=== PATIENT | female | born 1985 | race Caucasian/White ===

== ENCOUNTER 2025-06-18 05:36 | Emergency (ER) | payer OTHER, SELFPAY ==
[2025-06-18 05:42] VITALS: BP 117/76; BMI 17.8
[2025-06-18 05:45] VITALS: BP 117/76
[2025-06-18 06:00] VITALS: BP 120/80
[2025-06-18 06:05] LABS: Hematocrit 43.3 % (37.0-47.0); Hemoglobin 14.7 g/dL (12.0-16.0); Mean Corp Hgb Conc. 33.9 g/dL (33.0-37.0); Mean Corpuscular Volume 95.2 fL (81.0-99.0); Nucleated Red Blood Cells % 0 %; Platelet Count 176 10^3/uL (130-400); Red Cell Dist. Width 11.8 % (11.5-14.5)
[2025-06-18 06:14] LABS: HCG, Serum Qualitative Screen Negative
[2025-06-18 06:18] LABS: ALT (SGPT) 19 U/L (0-35); AST (SGOT) 23 U/L (14-36); Albumin 4.8 g/dl (3.5-5.0); Alkaline Phosphatase 43 U/L (38-126); Blood Urea Nitrogen 17 mg/dl (7-17); Calcium 9.8 mg/dl (8.4-10.2); Carbon Dioxide 28 mmol/L (22-30); Chloride 106 mmol/L (98-107); Estimated Creatinine Clearance 88 ml/min; Glucose 90 mg/dl (70-99); Potassium 3.8 mmol/L (3.5-5.1); Sodium 141 mmol/L (135-145); Total Protein 7.9 g/dl (6.3-8.2); eGFR > 60.00
--- NOTE | 2025-06-18 06:28 | ED.GENMED ---
History of Present Illness
General
Chief Complaint: Heart Rate Problem
Time Seen by Provider: 06/18/25 05:59
History of Present Illness
History of Present Illness:
FOCUSED PAST MEDICAL HISTORY
- Mitral valve prolapse and mitral regurgitation based on echo 2012
REVIEW OF OLD RECORDS
- I reviewed last records in [facility] which indicate that the patient gave in May 2020 via
Note:
CHIEF COMPLAINT(S)
Palpitations with left arm numbness, experienced overnight.
HISTORY OF PRESENT ILLNESS
The patient is a 39-year-old female who presents with palpitations and left arm numbness that woke her from sleep around 4:00 to 4:30 AM. She describes the palpitations as a pounding sensation, similar to a racing heart. She has experienced waking
up with intense heartbeats and subsequent nausea in the past, but not to this extent. The palpitations triggered a sensation of funny feeling in the head and discomfort in the back.
She reports the numbness was confined to her left upper extremity, with no involvement of the leg. No neck pain or symptoms suggestive of cervical radiculopathy were noted. She denies experiencing chest pain, similar sensory changes in the right
arm, leg, or headache, but mentioned feeling a tighter sensation during blood work.
Vital signs were stable upon examination in the Emergency Department, and her cardiovascular rhythm was noted to be within normal limits at that time. Previous episodes of similar symptoms have resolved on their own.
PAST MEDICAL AND SURGICAL HISTORY
The patient mentioned having an echocardiogram in 2012 that revealed a mitral valve abnormality with moderate to severe regurgitation.
SOCIAL DETERMINANTS AFFECTING HEALTH
The patient reports experiencing recent stress over the past few weeks, which may be a contributing factor to her current symptoms.
PHYSICAL EXAM
General: Alert, no acute distress.
Skin: Warm, dry.
Head: Normocephalic, atraumatic.
Neck: Supple, trachea midline.
Eyes, ears, nose, mouth, and throat: Oral mucosa moist.
Cardiovascular: Normal peripheral perfusion, heart rate in the 60s. No edema. There is a click associated with S2 along with 3 out of 6 murmur. The patient has known mitral regurgitation.
Respiratory: Respirations are non-labored.
Gastrointestinal: Abdomen nondistended.
Back: Normal range of motion, Normal alignment.
Musculoskeletal: Normal range of motion, normal strength; questionable sensory changes in the left upper extremity.
Neurological: Alert and oriented to person, place, time, and situation, No focal neurological deficit observed.
Psychiatric: Cooperative, appropriate mood & affect.
PLAN
1. Await final blood test results in the emergency department.
2. Recommendation to follow-up with a pile driver operator due to the finding of mitral valve regurgitation and palpitations. Referral to a local cardiology group will be provided.
3. Consideration of stress as a contributing factor to symptoms was discussed.
4. Patient education provided regarding potential need for further cardiac evaluation, including a repeat echocardiogram if indicated.
DIFFERENTIAL DIAGNOSIS
The Differential Diagnosis includes, in no particular order and is not limited to:
1. Mitral valve prolapse with regurgitation
2. Anxiety-induced palpitations
3. Atrial fibrillation or other cardiac arrhythmias
4. Left arm paresthesia due to cervical radiculopathy
5. Myocardial ischemia
6. Panic attack
7. Autonomic dysregulation
8. Hyperthyroidism
9. Musculoskeletal causes of back pain and/or paresthesia
10. Electrolyte imbalance
EKG
- Sinus 79, normal axis, no acute ST abnormality, QTc 460 ms
LABS
- White count 3.0, hemoglobin 14 point, platelets 176, chemistries unremarkable, hCG negative, troponin less than 0.012
UPDATE
-SUMMARY OF ENCOUNTER
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 She reported palpitations as a pounding sensation and has a known
history of mitral valve regurgitation that was noted as severe. In the emergency department, her vital signs were stable, and her cardiovascular rhythm was within normal limits. The patients complete blood cell count showed a slightly low white
blood cell count, similar to previous results, which has been attributed to her individual baseline norm. During the visit, the potential link between her symptoms and both the known mitral valve regurgitation and recent stress was considered. The
patient was advised to follow up with a pile driver operator for further evaluation and management of her heart condition.
PLAN
The patient was advised to follow up with a pile driver operator. She was counseled to schedule an appointment by calling later today. She is advised to return to the emergency department if her symptoms worsen, such as if the palpitations become more
intense, she experiences chest pressure, or feels lightheaded.
INDEPENDENT REVIEW OF LABS AND INTERPRETATION OF TESTS
My independent review of the Complete Blood Count (CBC) indicates a low white blood cell count of 3.0, which is below the normal range of 4.5 to 10.5. This finding is of note but not immediately concerning as it aligns with her historical trend of
having low counts.
PATIENT EDUCATION AND COUNSELING
The patient was informed about her slightly low white blood cell count and reassured it is not immediately concerning given her past medical history of similar results being within her normal range. She was educated on the importance of consulting a
pile driver operator for her mitral valve regurgitation and encouraged to return for any progression or change in symptoms.
FOLLOW-UP INSTRUCTIONS
The patient is instructed to follow up with a pile driver operator by contacting them today. She is encouraged to return to the emergency department if her symptoms change or worsen.
MEDICAL DECISION MAKING
-Complexity of Data Reviewed: Chronic conditions affecting care include known mitral valve regurgitation. Differential diagnosis considered includes mitral valve prolapse with regurgitation, anxiety-induced palpitations, atrial fibrillation,
autonomic dysregulation, and others.
-Data:
Category 1
The CBC indicating low white blood cell count was reviewed and interpreted.
Category 3
Discussion regarding management and follow-up with a pile driver operator was provided to the patient.
-Risk:
Consideration of Admission/Observation: Escalation of care including admission/observation was considered given the complexity and risk of the patients presenting complaint, exam findings, and/or their underlying comorbidities. However, ultimately I
feel the patient is safe for outpatient management with close follow up. Reasoning: Work-up reassuring, does not reveal any acute life/organ threatening processes, patients symptoms well controlled upon reevaluation, reexamination is reassuring,
vitals are stable, patient agreeable with discharge, reliable for follow-up.
DIAGNOSIS
1. Palpitations (R00.2)
2. Mitral valve prolapse with regurgitation (I34.0)
3. Leukopenia (D72.819)
Phy Exam
Physical Exam
Physical Exam:
See HPI
Course
Orders/Labs/Results
Orders:
Orders
06/18/25 05:39
ECG [Electrocardiogram (*1)] Urgent
Reason for Study: Bradycardia / Tachycardia
EKG- Treatment ONCE
06/18/25 05:41
Test Result ONCE
06/18/25 05:54
Complete Blood Count/With Diff Urgent
Comprehensive Metabolic Panel Urgent
HCG, Serum Qualitative Screen Urgent
Troponin I Urgent
Abnormal Lab Results
06/18/25
05:54
WBC 3.0 L 10^3/uL
(4.8-10.8)
MCH 32.3 H pg
(27.0-31.0)
MPV 11.3 H fL
(7.4-10.4)
Absolute Neuts (auto) 1.2 L 10^3/uL
(1.4-6.5)
Neutrophils % 40.9 L %
(42.2-75.2)
Total Bilirubin 1.6 H mg/dl
(0.2-1.3)
06/18/25 05:54
06/18/25 05:54
Vital Signs
Initial and Last Documented VS:
Initial Vital Signs
Pulse Pulse Ox
86 100
06/18/25 05:41 06/18/25 05:41
Last Documented Vital Signs
Temp Pulse Resp BP Pulse Ox
36.7 C 68 17 120/80 99
06/18/25 05:42 06/18/25 06:00 06/18/25 06:00 06/18/25 06:00 06/18/25 06:30
*Pulse Oximetry
SaO2: 99
Oxygen Mode of Delivery: Room air
Patient hypoxic: no
*Critical Care Note
Total Time (30-74mins, 75-104mins- exclusive of procedures): Not Applicable
ED Attending Note
-
Portions of this chart may have been created with voice recognition software.� Occasional wrong word or��sound alike� substitutions may have occurred due to the inherent limitations of voice recognition software.
Discharge Plan
Departure
Prescriptions:
No Action
No Current Medications
0
Interventions
Interventions:
*Risk Screen - Suicide Last Done: 06/18/25 05:42
*General Assessment Last Done: 06/18/25 05:42
*Neglect/Abuse Screening Last Done: 06/18/25 05:42
*ED- Fall Risk Assessment Last Done: 06/18/25 05:42
*ED COVID-19 Vaccine History Last Done: 06/18/25 05:42
ED- Cardiac Assessment Last Done: 06/18/25 05:58
ED- Pulmonary Assessment Last Done: 06/18/25 05:58
Discharge Date and Time
Print Language: BOLIVIAN
[2025-06-18 06:30] LABS: Troponin I < 0.012 ng/ml
[2025-06-18 07:15] VITALS: BP 106/69
--- NOTE | 2025-06-18 07:30 | ED.GENMED ---
History of Present Illness
General
Chief Complaint: Heart Rate Problem
Time Seen by Provider: 06/18/25 05:59
Course
Orders/Labs/Results
Orders:
Orders
06/18/25 05:39
ECG [Electrocardiogram (*1)] Urgent
Reason for Study: Bradycardia / Tachycardia
EKG- Treatment ONCE
06/18/25 05:41
Test Result ONCE
06/18/25 05:54
Complete Blood Count/With Diff Urgent
Comprehensive Metabolic Panel Urgent
HCG, Serum Qualitative Screen Urgent
Troponin I Urgent
Abnormal Lab Results
06/18/25
05:54
WBC 3.0 L 10^3/uL
(4.8-10.8)
MCH 32.3 H pg
(27.0-31.0)
MPV 11.3 H fL
(7.4-10.4)
Absolute Neuts (auto) 1.2 L 10^3/uL
(1.4-6.5)
Neutrophils % 40.9 L %
(42.2-75.2)
Total Bilirubin 1.6 H mg/dl
(0.2-1.3)
06/18/25 05:54
06/18/25 05:54
Vital Signs
Initial and Last Documented VS:
Initial Vital Signs
Pulse Pulse Ox
86 100
06/18/25 05:41 06/18/25 05:41
Last Documented Vital Signs
Temp Pulse Resp BP Pulse Ox
98.1 F 59 15 120/80 99
06/18/25 05:42 06/18/25 06:30 06/18/25 06:30 06/18/25 06:00 06/18/25 06:30
*Pulse Oximetry
SaO2: 99
Oxygen Mode of Delivery: Room air
ED Attending Note
-
Portions of this chart may have been created with voice recognition software.� Occasional wrong word or��sound alike� substitutions may have occurred due to the inherent limitations of voice recognition software.
Discharge Plan
Departure
Prescriptions:
No Action
No Current Medications
0
Interventions
Interventions:
*Risk Screen - Suicide Last Done: 06/18/25 05:42
*General Assessment Last Done: 06/18/25 05:42
*Neglect/Abuse Screening Last Done: 06/18/25 05:42
*ED- Fall Risk Assessment Last Done: 06/18/25 05:42
*ED COVID-19 Vaccine History Last Done: 06/18/25 05:42
ED- Cardiac Assessment Last Done: 06/18/25 05:58
ED- Pulmonary Assessment Last Done: 06/18/25 05:58
Discharge Date and Time
Print Language: [email or web address]
== END 2025-06-18 08:09 | disposition home or self-care (01) ==
LOC: EMR 05:36
PROVIDERS: Emergency Medicine; EMERGENCY PHYSICIAN Emergency Medicine; FAMILY PHYSICIAN Nurse Practitioner Family
DX: R00.2 Palpitations (principal); I34.0 Nonrheumatic mitral (valve) insufficiency; D72.819 Decreased white blood cell count, unspecified
CPT/HCPCS: 99284; 80053; 84484; 84703; 85025; 93005

== ENCOUNTER → 2025-06-25 08:54 | Outpatient (REF) | payer OTHER, SELFPAY ==
[2025-06-25 10:48] LABS: Hematocrit 40.7 % (37.0-47.0); Hemoglobin 13.4 g/dL (12.0-16.0); Mean Corp Hgb Conc. 32.9 g/dL (33.0-37.0); Mean Corpuscular Volume 95.1 fL (81.0-99.0); Nucleated Red Blood Cells % 0 %; Platelet Count 157 10^3/uL (130-400); Red Cell Dist. Width 11.9 % (11.5-14.5)
[2025-06-25 11:30] LABS: FSH 5.9 mIU/ml
[2025-06-25 11:44] LABS: TSH 1.16 uIU/ml (0.47-4.68)
[2025-06-25 12:22] LABS: Folate 11.6 ng/ml (2.76-20); Vitamin B12 355 pg/ml (239-931)
[2025-06-27 21:34] LABS: Total T3 (Sendout) 100 ng/dL (80-200)
== END ==
LOC: REG 08:54
PROVIDERS: ATTENDING PHYSICIAN Nurse Practitioner Family
DX: R00.2 Palpitations (principal); Z09 Encounter for follow-up examination after completed treatment for conditions other than malignant neoplasm; I34.1 Nonrheumatic mitral (valve) prolapse; R79.89 Other specified abnormal findings of blood chemistry
CPT/HCPCS: 36415; 82607; 82670; 82746; 83001; 83002; 84439; 84443; 84480; 85025; 93225; 93226

== ENCOUNTER → 2025-08-08 09:06 | Outpatient (REF) | payer OTHER, SELFPAY | LOC: RCS 09:06 | PROVIDERS: ATTENDING PHYSICIAN Internal Medicine Cardiovascular Disease; FAMILY PHYSICIAN Nurse Practitioner Family | DX: I34.0 Nonrheumatic mitral (valve) insufficiency (principal) | CPT/HCPCS: 93306 ==